=== PATIENT | female | born 1975 | race Native Hawaiian/Other Pacific Islander ===

== ENCOUNTER 2020-07-30 18:47 | Emergency (ER) | payer OTHER ==
[~2020-07-30] VITALS: Ht 175.3 cm; Wt 57.2 kg
[2020-07-30 20:10] VITALS: BP 118/77; TEMP 97.9
== END 2020-07-30 20:10 | disposition home or self-care (01) ==
LOC: ED 18:47
DX: L02.511 Cutaneous abscess of right hand (principal); W46.0XXA Contact with hypodermic needle, initial encounter; Y92.89 Other specified places as the place of occurrence of the external cause
CPT/HCPCS: 96372; 99282; 99283; J0696